=== PATIENT | male | born 1970 | race Caucasian/White ===

== ENCOUNTER 2023-10-27 23:03 | Emergency (ER) | payer SELFPAY ==
[2023-10-27] MEDS ORDERED: NA CHLORIDE 0.9% 1,000 ML ONE (23:21)
[2023-10-27 23:36] LABS: Absolute Eosinophils 0.1 K/uL (0-0.5); Absolute Lymphocytes (CBC) 0.9 K/uL (0.7-4.9); Absolute Monocytes 0.7 K/uL (0.1-1.3); Absolute Neutrophil 7.6 K/uL (1.8-8.0); Basophils % 0.5 % (0-1.3); Eosinophils % 0.7 % (0-4.4); Hematocrit 38.2 % (39.6-49.0); Hemoglobin 13.1 g/dL (13.6-17.9); Lymphocytes % 9.7 % (15.3-44.8); MCH 32.6 pg (27.0-35.0); MCHC 34.4 g/dL (32.0-36.0); MCV 94.9 fL (80-100); MPV 8.3 fL (7.6-11.3); Monocytes % 7.9 % (3.3-12.3); Neutrophils % 81.2 % (41.7-73.7); Nucleated Red Blood Cells % 0.1 % (0-0); Platelets 282 thou/uL (152-406); RBC Red Blood Cell Count 4.03 M/uL (4.33-5.43); Red Cell Distribution Width 14.2 % (12.1-15.2)
[2023-10-27 23:55] LABS: ALT/SGPT 50 U/L (16-61); AST/SGOT 41 U/L (15-37); Albumin 3.8 g/dL (3.4-5.0); Albumin/Globulin Ratio 1.1 (1.1-1.8); Alkaline Phosphatase 85 U/L (45-117); Anion Gap 8.9 mEq/L (5.0-15.0); BUN Blood Urea Nitrogen 26 mg/dL (7-18); Bicarbonate 28 mEq/L (21-32); Bilirubin Total 0.2 mg/dL (0.2-1.0); Globulin 3.6 g/dL (2.3-3.5); Glomerular Filtration Rate 58 ml/min (=/>90); Glucose Level 104 mg/dL (74-106); Magnesium 2.2 mg/dL (1.6-2.4); Potassium 3.9 mEq/L (3.5-5.1); Protein, Total 7.4 g/dL (6.4-8.2); Sodium Level 141 mEq/L (136-145); Troponin High Sensitivity 13.5 pg/mL (<58.9)
[2023-10-28 00:10] LABS: Bilirubin Direct < 0.2 mg/dL (0-0.2)
--- NOTE | 2023-10-28 01:47 | EDPHYS ---
Physician Documentation [facility] Name: Genaro Antonio Jr Age: 53 yrs Sex: Male : 1970 Arrival Date: 10/27/2023 Time: 23:03 Bed 7 Private MD: ED Physician Van Lynne HPI: 10/27 00:01 This 53 yrs old Male presents to ER via EMS with complaints of chest pain, hernia pain. rt 00:01 Patient presents to the ED with intermittent chest pain during the morning times that rt resolved soon after waking up. Patient states that he gone to argument with family ember, causing him to have chest pain again. This is also since resolved. Patient reports a right inguinal hernia that has been present for about a year. States it is easily reducible but then does come out quite frequently. Does not follow-up with a surgeon for this. Denies other acute complaints at this time. States he has been feeling jittery, has been off of his thyroid medications for about a month. Symptoms are moderate in severity, no other aggravating elevating factors.. Historical: - Allergies: 10/26 23:14 No Known Allergies; jb4 - PMHx: 23:14 inguanal hernia; thyroid cancer; jb4 - PSHx: 23:14 thyroid ectomy; cranial surgery; jb4 - Immunization history:: Adult Immunizations up to date. - Infectious Disease History:: Denies. - Social history:: Smoking status: Patient reports the use of cigarette tobacco products, smokes one-half pack cigarettes per day. - Family history:: not pertinent. ROS: 10/27 00:01 Constitutional: Negative for fever, chills, and weight loss, Respiratory: Negative for rt shortness of breath, cough, wheezing, and pleuritic chest pain, MS/Extremity: Negative for injury and deformity, Skin: Negative for injury, rash, and discoloration, Neuro: Negative for headache, weakness, numbness, tingling, and seizure, Cardiovascular: Positive for chest pain, Negative for edema, Abdomen/GI: Positive for abdominal pain, Negative for nausea and vomiting, Exam: 00:01 Constitutional: This is a well developed, well nourished patient who is awake, alert, rt and in no acute distress. Head/Face: Normocephalic, atraumatic. Chest/axilla: Normal chest wall appearance and motion. Nontender with no deformity. No lesions are appreciated. Cardiovascular: Regular rate and rhythm with a normal S1 and S2. No gallops, murmurs, or rubs. Normal PMI, no JVD. No pulse deficits. Respiratory: Lungs have equal breath sounds bilaterally, clear to auscultation and percussion. No rales, rhonchi or wheezes noted. No increased work of breathing, no retractions or nasal flaring. Skin: Warm, dry with normal turgor. Normal color with no rashes, no lesions, and no evidence of cellulitis. MS/ Extremity: Pulses equal, no cyanosis. Neurovascular intact. Full, normal range of motion. Neuro: Awake and alert, GCS 15, oriented to person, place, time, and situation. Cranial nerves II-XII grossly intact. Motor strength 5/5 in all extremities. Sensory grossly intact. Cerebellar exam normal. Normal gait. 00:01 Abdomen/GI: Easily reducible right inguinal hernia, no abdominal tenderness, distention, 00:03 ECG was reviewed by the Attending Physician. rt Vital Signs: 10/26 23:08 BP 161 / 109; Pulse 80; Resp 16; Temp 98.5; Pulse Ox 92% on R/A; Weight 104.33 kg (R); jb4 Height 6 ft. 1 in. (R); Pain 10/10; 10/27 00:12 BP 148 / 99; Pulse 75; Resp 21; Pulse Ox 95% on R/A; vc1 01:01 BP 148 / 97; Pulse 72; Resp 19; Pulse Ox 98% on R/A; jb4 01:17 BP 148 / 97; Pulse 69; Resp 13; Pulse Ox 94% on R/A; vc1 02:01 BP 148 / 97; Pulse 69; Resp 13; Pulse Ox 94% ; vc1 10/26 23:08 Body Mass Index 30.34 (104.33 kg, 185.42 cm) jb4 10/26 23:08 Pain Scale: Adult jb4 MDM: 10/26 23:06 Patient medically screened. rt 10/27 04:21 Differential Diagnosis Hernia, bowel obstruction, ACS, nonspecific chest pain. Data rt reviewed: vital signs, nurses notes, lab test result(s), EKG, radiologic studies. Consideration of Admission/Observation Escalation of care including admission/observation considered. Symptoms not consistent with acute coronary syndrome, low troponin, unremarkable EKG, patient has easily reducible hernia, not requiring emergent surgery. Patient to follow-up as an outpatient.. I considered the following discharge prescriptions or medication management in the emergency department Medications were administered in the Emergency Department. See MAR. Independent interpretation of the following test(s) in the Emergency Department CT Scan: My interpretation is Inguinal hernia seen on interpretation of CT scan images. Test considered but Not performed: CT: Low suspicion for pulmonary embolus, CT angiogram not indicated. Counseling: I had a detailed discussion with the patient and/or guardian regarding the historical points, exam findings, and any diagnostic results supporting the discharge/admit diagnosis, lab results, radiology results, the need for outpatient follow up, to return to the emergency department if symptoms worsen or persist or if there are any questions or concerns that arise at home. Response to treatment: the patient's symptoms have markedly improved after treatment. 10/26 23:16 Order name: Basic Metabolic Panel; Complete Time: 00:23 rt 10/26 23:16 Order name: CBC with Diff; Complete Time: 00: rt 10/26 23:16 Order name: LFT's; Complete Time: 00:23 rt 10/26 23:16 Order name: Magnesium; Complete Time: 00:23 rt 10/26 23:16 Order name: Troponin HS; Complete Time: 00:23 rt 10/26 23:16 Order name: TSH; Complete Time: 00:23 rt 10/27 00:12 Order name: T4 Free; Complete Time: 00:23 EDMS 10/26 23:16 Order name: XRAY Chest (1 view) rt 10/26 23:16 Order name: CT Abd/Pelvis - IV Contrast Only rt 10/26 23:16 Order name: EKG; Complete Time: 23:17 rt 10/26 23:16 Order name: Cardiac monitoring; Complete Time: 23:18 rt 10/26 23:16 Order name: EKG - Nurse/Tech; Complete Time: 23:18 rt 10/26 23:16 Order name: IV Saline Lock; Complete Time: 23:18 rt 10/26 23:16 Order name: Labs collected and sent; Complete Time: 23:18 rt 10/26 23:16 Order name: O2 Per Protocol; Complete Time: 23:18 rt 10/26 23:16 Order name: O2 Sat Monitoring; Complete Time: 23:18 rt EC:03 Rate is 80 beats/min. Rhythm is regular, Normal Sinus Rhythm with No ectopy. QRS [place] rt is Normal. [place] interval is normal. QRS interval is normal. QT interval is normal. No Q waves. No ST changes noted. Interpreted by me. Administered Medications: 10/26 23:27 Drug: NS 0.9% IV 1000 ml IV at 1 bolus Per protocol; 1000 mL bolus Route: IV; Rate: 1 jb4 bolus; Site: right antecubital; 10/27 00:27 Follow up: IV Status: Completed infusion vc1 Disposition Summary: 10/28/23 01:47 Discharge Ordered Notes: Location: Home rt Problem: new rt Symptoms: have improved rt Condition: Stable rt Diagnosis - Chest pain, unspecified rt - Hypothyroidism, unspecified rt Followup: rt - With: Private Physician - When: 2 - 3 days - Reason: Discharge Instructions: - Discharge Summary Sheet rt - Nonspecific Chest Pain, Adult rt - Hypothyroidism rt Forms: - Medication Reconciliation Form rt - Antibiotic Education rt - Prescription Opioid Use rt - Patient Portal Instructions rt - Leadership Thank You Letter rt Prescriptions: - Levothyroxine 150 mcg Oral tablet - take 2 tablet ORAL route once daily; 60 tablet; Refills: 0, Product Selection rt Permitted Signatures: Dispatcher [employer] Candelario Logan RN RN jb4 Van Lynne MD MD rt Mini Cardoza RN vc1 Corrections: (The following items were deleted from the chart) 10/26 23:17 23:17 BASIC METABOLIC PANEL+C.LAB.BRZ ordered. EDMS EDMS 23:17 23:17 CBC+H.LAB.BRZ ordered. EDMS EDMS 23:17 23:17 HEPATIC FUNCTION+C.LAB.BRZ ordered. EDMS EDMS 23:17 23:17 MAGNESIUM+C.LAB.BRZ ordered. EDMS EDMS 23:17 23:17 Troponin High Sensitivity+C.LAB.BRZ ordered. EDMS EDMS 23:17 23:17 THYROID STIMULAT HORMONE+C.LAB.BRZ ordered. EDMS EDMS
--- NOTE | 2023-10-28 01:47 | ER ---
Nurse's Notes [facility] Name: Genaro Antonio Jr Age: 53 yrs Sex: Male : 1970 Arrival Date: 10/27/2023 Time: 23:03 Bed 7 Private MD: Diagnosis: Chest pain, unspecified;Hypothyroidism, unspecified Presentation: 10/26 23:08 Chief complaint: Patient states: I am not currently having chest pain but I have an jb4 inguinal hernia that is really bothers me. I can put it back in but it keeps popping back out. EMS states: Pt states he got into an argument and his chest pain is worse tonight than it has been the past week. He reports dizziness and feeling jittery for the past week. Coronavirus screen: At this time, the client does not indicate any symptoms associated with coronavirus-19. Ebola Screen: No symptoms or risks identified at this time. Initial Sepsis Screen: Does the patient meet any 2 criteria? No. Patient's initial sepsis screen is negative. Does the patient have a suspected source of infection? No. Patient's initial sepsis screen is negative. Risk Assessment: Do you want to hurt yourself or someone else? Patient reports no desire to harm self or others. Onset of symptoms was October 27, 2023. Transition of care: patient was not received from another setting of care. 23:08 Method Of Arrival: EMS: [facility] jb4 23:08 Acuity: MARTHA 3 jb4 Historical: - Allergies: 23:14 No Known Allergies; jb4 - PMHx: 23:14 inguanal hernia; thyroid cancer; jb4 - PSHx: 23:14 thyroid ectomy; cranial surgery; jb4 - Immunization history:: Adult Immunizations up to date. - Infectious Disease History:: Denies. - Social history:: Smoking status: Patient reports the use of cigarette tobacco products, smokes one-half pack cigarettes per day. - Family history:: not pertinent. Screenin:15 [facility] ED Fall Risk Assessment (Adult) History of falling in the last 3 months, jb4 including since admission No falls in past 3 months (0 pts) Confusion or Disorientation No (0 pts) Intoxicated or Sedated No (0 pts) Impaired Gait No (0 pts) Mobility Assist Device Used No (0 pt) Altered Elimination No (0 pt) Score/Fall Risk Level 0 - 2 = Low Risk Oriented to surroundings, Maintained a safe environment. Abuse screen: Denies threats or abuse. Nutritional screening: No deficits noted. Tuberculosis screening: No symptoms or risk factors identified. Assessment: 23:15 General: Appears in no apparent distress. uncomfortable, Behavior is calm, cooperative, jb4 appropriate for age. Pain: Complains of pain in groin Pain does not radiate. Pain currently is 10 out of 10 on a pain scale. Neuro: Level of Consciousness is awake, alert, obeys commands, Oriented to person, place, time, situation. Cardiovascular: Patient's skin is warm and dry. Respiratory: Airway is patent Respiratory effort is even, unlabored, Respiratory pattern is regular, symmetrical. GI: No signs and/or symptoms were reported involving the gastrointestinal system. : No signs and/or symptoms were reported regarding the genitourinary system. EENT: No signs and/or symptoms were reported regarding the EENT system. Derm: Skin is intact, Skin is pink, warm \T\ dry. Musculoskeletal: Circulation, motion, and sensation intact. Range of motion: intact in all extremities. 10/27 01:17 Reassessment: Patient appears in no apparent distress at this time. No changes from vc1 previously documented assessment. Patient and/or family updated on plan of care and expected duration. Pain level reassessed. Patient is alert, oriented x 3, equal unlabored respirations, skin warm/dry/pink. Patient denies pain at this time. 02:01 Reassessment: Patient appears in no apparent distress at this time. No changes from vc1 previously documented assessment. Patient and/or family updated on plan of care and expected duration. Pain level reassessed. Patient is alert, oriented x 3, equal unlabored respirations, skin warm/dry/pink. Vital Signs: 10/26 23:08 BP 161 / 109; Pulse 80; Resp 16; Temp 98.5; Pulse Ox 92% on R/A; Weight 104.33 kg (R); jb4 Height 6 ft. 1 in. (R); Pain /; 10/27 00:12 BP 148 / 99; Pulse 75; Resp 21; Pulse Ox 95% on R/A; vc1 01:01 BP 148 / 97; Pulse 72; Resp 19; Pulse Ox 98% on R/A; jb4 01:17 BP 148 / 97; Pulse 69; Resp 13; Pulse Ox 94% on R/A; vc1 02:01 BP 148 / 97; Pulse 69; Resp 13; Pulse Ox 94% ; vc1 10/26 23:08 Body Mass Index 30.34 (104.33 kg, 185.42 cm) jb4 10/26 23:08 Pain Scale: Adult jb4 ED Course: 10/26 23:05 Patient arrived in ED. ss 23:06 Van Lynne MD is Attending Physician. rt 23:08 Inserted saline lock: 20 gauge in right antecubital area, using aseptic technique. vc1 Blood collected. Flushed with 10 mL NS. 23:14 Triage completed. jb4 23:14 Arm band placed on right wrist. jb4 10/27 00:34 CT Abd/Pelvis - IV Contrast Only In Process Unspecified. EDMS 00:59 Patient has correct armband on for positive identification. Bed in low position. Call jb4 light in reach. Side rails up X 1. Provided Education on: plan of care. 01:17 XRAY Chest (1 view) In Process Unspecified. EDMS 02:03 No provider procedures requiring assistance completed. IV discontinued, intact, vc1 bleeding controlled, No redness/swelling at site. Pressure dressing applied. Administered Medications: 10/26 23:27 Drug: NS 0.9% IV 1000 ml IV at 1 bolus Per protocol; 1000 mL bolus Route: IV; Rate: 1 jb4 bolus; Site: right antecubital; 10/27 00:27 Follow up: IV Status: Completed infusion vc1 Medication: 10/26 23:15 VIS not applicable for this client. jb4 Outcome: 10/27 01:47 Discharge ordered by . rt 02:03 Discharged to home ambulatory, vc1 02:03 Condition: good 02:03 Discharge instructions given to patient, Instructed on discharge instructions, follow up and referral plans. medication usage, Demonstrated understanding of instructions, follow-up care, medications, Prescriptions given X 1, 02:11 Patient left the ED. ss Signatures: Dispatcher [employer] EDMS Maya Garduno RN RN Candelario Carver RN RN jb4 Mini Cardoza RN RN vc1 Van Lynne MD MD rt
[2023-10-28 02:35] VITALS: TEMP 98.5
[2023-10-28 02:38] VITALS: BP 148/97
[2023-10-28 02:39] VITALS: O2SAT 94
--- NOTE | 2023-10-28 17:45 | EKG ---
Test Date: 2023-10-27 Test Time: 23:04:42 Accreditation Coordinator: KINGA MEASUREMENT RESULTS: Intervals: Rate: 80 CT: 186 QRSD: 88 QT: 350 QTc: 403 [place]: P: 60 CT: 186 QRS: 15 T: 61 INTERPRETIVE STATEMENTS: Normal sinus rhythm Septal infarct, age undetermined Abnormal ECG No previous ECG available for comparison Electronically Signed On 10-28-23 17:44:13 CDT by Tristian Burton
--- NOTE | 2023-10-28 20:25 | RAD REPORT ---
EXAM DESCRIPTION: Abdomen Pelvis W Contrast 10/28/2023 1:01 AM CDT CLINICAL HISTORY: 53 years, Male, hernia;Abd pain COMPARISON: None TECHNIQUE: Contrast-enhanced images of the abdomen and pelvis were performed from the lung bases to the ischial tuberosities after the administration of IV contrast. In addition multiplanar reformats in the coronal and sagittal plane were obtained and reviewed. An individualized dose optimization technique, Automated Exposure Control, was utilized for the perfo rmed procedure. FINDINGS: Lung bases: The lung bases minimal atelectasis right lung base. Liver: The liver demonstrates to be normal. There are several subcentimeter hepatic cysts right and l eft hepatic lobe largest one measuring 0.9 cm on image 8. Gallbladder: The gallbladder is partially contracted most likely related to lack of fasting. No signi ficant filling defects and/or abnormality is identified. Adrenal glands: The adrenal glands demonstrate to be normal. Pancreas: The pancreas demonstrate to be normal. Spleen: The spleen demonstrate to be within normal limits. Kidneys: The kidneys demonstrate normal uptake of contrast media. There is no evidence for nephroli thiasis and/or hydronephrosis. GI: Grossly the unopacified stomach, small bowel and large bowel demonstrate to be within normal limi ts. No definitive bowel dilatation and/or free air. The appendix is normal. The left-sided colon demo nstrate to be decompressed with no gross abnormalities. : The urinary bladder demonstrate to be unremarkable. Genitalia: The prostate gland demonstrate to be slightly perhaps related to BPH. Abdominal aorta: The aorta demonstrate to be within normal limits. Retroperitoneum: There is no retroperitoneal lymphadenopathy. There is no evidence for ascites and/or abnormal fluid collections. Bones: The bony structures demonstrate to be within normal limits. Lumbar spine demonstrated presence of a minimal degenerative changes with anterior spondylosis at L4/L5. No evidence for compression de formity and/or significant skeletal lesions. Soft tissues: There is a right inguinal hernia containing omentum and small bowel extending down to t he scrotal sac. There is minimal haziness of the peritoneum at the site of entry of hernia suggesting fluid and/or minimal irritation. IMPRESSION: Right inguinal hernia containing omentum and small bowel extending down to the scrotal s ac. There is minimal haziness of the peritoneum at the site of entry of hernia suggesting fluid and/o r minimal irritation. No evidence for incarceration. Several subcentimeter hepatic cysts. Mildly enlarged prostate gland perhaps related to BPH. Electronically signed by: Rodger Acharya MD 10/28/2023 01:04 AM CDT RP Due to temporary technical issues with the PACS/Fluency reporting system, reports are being signed by the in house radiologists without review as a courtesy to insure prompt reporting. The interpreting radiologist is fully responsible for the content of the report.
--- NOTE | 2023-10-28 20:32 | RAD REPORT ---
EXAM DESCRIPTION: XR Chest, 1 View CLINICAL HISTORY: The patient is 53 years old and is Male; CHEST PAIN TECHNIQUE: Frontal view of the chest. COMPARISON: No relevant prior studies available. FINDINGS: Lungs: Peribronchial thickening. No consolidation. Pleural space: Unremarkable. No pneumothorax. Heart: Unremarkable. Mediastinum: Unremarkable. Normal mediastinal contour. Bones/joints: No acute findings. IMPRESSION: Peribronchial thickening. No consolidation. Electronically signed by: Harjindre Barnett MD 10/28/2023 01:27 AM CDT 8 Due to temporary technical issues with the PACS/Fluency reporting system, reports are being signed by the in house radiologists without review as a courtesy to insure prompt reporting. The interpreting radiologist is fully responsible for the content of the report.
== END 2023-10-28 02:11 | disposition home or self-care (01) ==
LOC: ER 23:03
DX: R07.9 Chest pain, unspecified (principal); E03.9 Hypothyroidism, unspecified; K40.90 Unilateral inguinal hernia, without obstruction or gangrene, not specified as recurrent; F17.210 Nicotine dependence, cigarettes, uncomplicated
CPT/HCPCS: 36415; 71045; 74177; 80048; 80076; 83735; 84439; 84443; 84484; 85025; 93005; J7030; Q9967

== ENCOUNTER 2023-10-31 14:09 | Emergency (ER) | payer OTHER ==
[2023-10-31] MEDS ORDERED: NA CHLORIDE 0.9% 500 ML ONE (15:01)
[2023-10-31] MEDS ORDERED: MAGNESIUM SULFATE 1 gm IVPB 1 GM/100 ML BAG IV ONE (15:02)
--- NOTE | 2023-10-31 15:02 | RAD REPORT ---
EXAM DESCRIPTION: CT - Head Brain Wo Cont - 10/31/2023 2:56 pm CLINICAL HISTORY: Headache;Visual disturbances Headache, drowsiness COMPARISON: <Comparisons> TECHNIQUE: All CT scans are performed using dose optimization technique as appropriate and may inclu de automated exposure control or mA/KV adjustment according to patient size. FINDINGS: No intracranial hemorrhage, hydrocephalus or extra-axial fluid collection.No areas of brai n edema or evidence of midline shift. Gliosis with previous craniotomy left frontal region. The paranasal sinuses and mastoids are clear. Mild vertebral atherosclerosis. IMPRESSION: No acute intracranial abnormality.
[2023-10-31 15:10] LABS: Absolute Basophils 0.1 K/uL (0-0.5); Absolute Eosinophils 0.1 K/uL (0-0.5); Absolute Lymphocytes (CBC) 1.2 K/uL (0.7-4.9); Absolute Neutrophil 8.4 K/uL (1.8-8.0); Basophils % 0.7 % (0-1.3); Eosinophils % 0.5 % (0-4.4); Hematocrit 45.2 % (39.6-49.0); Hemoglobin 15.1 g/dL (13.6-17.9); Lymphocytes % 11.1 % (15.3-44.8); MCH 32.1 pg (27.0-35.0); MCHC 33.4 g/dL (32.0-36.0); MCV 95.9 fL (80-100); MPV 8.6 fL (7.6-11.3); Neutrophils % 78.7 % (41.7-73.7); Platelets 344 thou/uL (152-406); RBC Red Blood Cell Count 4.71 M/uL (4.33-5.43); Red Cell Distribution Width 14.2 % (12.1-15.2)
[2023-10-31 15:58] LABS: Albumin 4.7 g/dL (3.4-5.0); Albumin/Globulin Ratio 1.1 (1.1-1.8); Anion Gap 9.6 mEq/L (5.0-15.0); Bilirubin Total 0.5 mg/dL (0.2-1.0); Globulin 4.2 g/dL (2.3-3.5); Potassium 4.6 mEq/L (3.5-5.1); Protein, Total 8.9 g/dL (6.4-8.2)
[2023-10-31] MEDS ORDERED: NA CHLORIDE 0.9% 1,000 ML ONE ×2 (16:02→17:25)
[2023-10-31 17:19] LABS: Specific Gravity > 1.030 (1.005-1.030); Sqamous Epithelial <5 /HPF (None Seen); Urine Bacteria <20 /HPF (<20); Urine Bilirubin NEGATIVE (Negative); Urine Blood Negative (Negative); Urine Clarity Extremely Turbid (Clear); Urine Color Yellow (Yellow); Urine Culture Reflex Order NOT NEEDED; Urine Glucose NEGATIVE (Negative); Urine Ketones NEGATIVE (Negative); Urine Microscopic Reflex YN ORDER UMIC; Urine Mucus 4+ /HPF (None Seen); Urine Nitrite NEGATIVE (Negative); Urine Protein 1+ (Negative); Urine RBC <5 /HPF (None Seen); Urine Urobilinogen 1+ (Normal); Urine WBC <5 /HPF (<5); Urine pH 5.5 (5.0-7.0)
[2023-10-31 17:20] LABS: Urine Crystals Unidentified Few /HPF (None Seen); Urine WBC Clump Rare /HPF (None Seen); Urine Yeast (Budding) Trace /HPF (None Seen)
--- NOTE | 2023-10-31 17:56 | ER ---
Nurse's Notes [facility] Name: Genaro Antonio Jr Age: 53 yrs Sex: Male : 1970 Arrival Date: 10/31/2023 Time: 14:09 Bed 15 Private MD: Diagnosis: Rhabdomyolysis;Dehydration Presentation: 10/30 14:20 Chief complaint: EMS states: Working outside past three days and is now experiencing rs5 generalized cramping. 14:20 Coronavirus screen: At this time, the client does not indicate any symptoms associated rs5 with coronavirus-19. Ebola Screen: No symptoms or risks identified at this time. Initial Sepsis Screen: Does the patient meet any 2 criteria? No. Patient's initial sepsis screen is negative. Does the patient have a suspected source of infection? No. Patient's initial sepsis screen is negative. Risk Assessment: Do you want to hurt yourself or someone else? Patient reports no desire to harm self or others. Onset of symptoms was October 31, 2023. 14:20 Method Of Arrival: EMS: [facility] rs 14:20 Acuity: MARTHA 3 rs5 Historical: - Allergies: 14:27 No Known Allergies; rs5 - PMHx: 14:27 THYROID CANCER; inguanal hernia; Aneurysm; Kidney disease; rs5 - PSHx: 14:27 Cranial surgery; thyroid ectomy; rs5 - Immunization history:: Adult Immunizations up to date. - Infectious Disease History:: Denies. - Social history:: Smoking status: Patient denies any tobacco usage or history of. Screenin:20 [facility] ED Fall Risk Assessment (Adult) History of falling in the last 3 months, rs5 including since admission No falls in past 3 months (0 pts) Confusion or Disorientation No (0 pts) Intoxicated or Sedated No (0 pts) Impaired Gait No (0 pts) Mobility Assist Device Used No (0 pt) Altered Elimination No (0 pt) Score/Fall Risk Level 0 - 2 = Low Risk Oriented to surroundings, Maintained a safe environment. Abuse screen: Denies threats or abuse. Nutritional screening: No deficits noted. Tuberculosis screening: No symptoms or risk factors identified. Assessment: 14:20 General: Appears in no apparent distress. uncomfortable, Behavior is calm, cooperative. rs5 Pain: Denies pain. Neuro: Level of Consciousness is awake, alert, obeys commands, Oriented to person, place, time, situation. Cardiovascular: Patient's skin is warm and dry. Respiratory: Airway is patent Respiratory effort is even, unlabored, Respiratory pattern is regular, symmetrical. GI: Abdomen is round non-distended, Abd is soft and non tender X 4 quads. : No signs and/or symptoms were reported regarding the genitourinary system. EENT: No signs and/or symptoms were reported regarding the EENT system. Derm: Skin is intact, Skin is pink, warm \T\ dry. Musculoskeletal: Range of motion: intact in all extremities, pt reports generalized cramping. 15:33 Reassessment: Patient and/or family updated on plan of care and expected duration. Pain rs5 level reassessed. Patient is alert, oriented x 3, equal unlabored respirations, skin warm/dry/pink. 16:40 Reassessment: No changes from previously documented assessment. rs5 18:03 Reassessment: No changes from previously documented assessment. rs5 Vital Signs: 14:20 BP 148 / 89; Pulse 70; Resp 17; Temp 97.9(O); Pulse Ox 98% on R/A; rs5 17:01 BP 135 / 80; Pulse 74; Resp 17; Pulse Ox 98% on R/A; rs5 18:05 BP 133 / 79; Pulse 70; Resp 16; Pulse Ox 99% on R/A; rs5 ED Course: 14:17 Patient arrived in ED. rn 14:17 Bello Paula MD is Attending Physician. rn 14:20 Patient has correct armband on for positive identification. Placed in gown. Bed in low rs5 position. Call light in reach. Side rails up X2. 14:20 Arm band placed on right wrist. bm8 14:20 No provider procedures requiring assistance completed. rs5 14:25 Jose Leblanc, ARMIN is Primary Nurse. rs5 14:27 Triage completed. rs5 14:57 CT Head Brain wo Cont In Process Unspecified. EDMS 18:05 Inserted saline lock: 20 gauge in right antecubital area, using aseptic technique. rs5 Blood collected. Flushed with 10 mL NS. 18:05 IV discontinued, intact, bleeding controlled, No redness/swelling at site. Pressure rs5 dressing applied. 18:09 Attending Physician role handed off by Bello Paula MD rs5 18:09 Primary Nurse role handed off by Jose Leblanc RN rs5 18:09 Jose Leblanc, RN is Primary Nurse. rs5 18:40 Provided Education on: post er care. bm8 18:41 Bello Paula MD is Attending Physician. bm8 Administered Medications: 15:12 Drug: NS 0.9% IV 500 ml IV at bolus once Route: IV; Rate: bolus; Site: right rs5 antecubital; 16:00 Follow up: IV Status: Completed infusion rs5 15:12 Drug: Magnesium Sulfate IVPB 1 grams IVPB once over 1 hrs Route: IVPB; Infused Over: 1 rs5 hrs; Site: right antecubital; 16:00 Follow up: IV Status: Completed infusion rs5 16:05 Drug: NS 0.9% IV 1000 ml IV at 1000 ml once Route: IV; Rate: 1000 ml; Site: right rs5 antecubital; 17:00 Follow up: IV Status: Completed infusion rs5 17:46 Drug: NS 0.9% IV 1000 ml IV at 1000 ml once Route: IV; Rate: 1000 ml; Site: right rs5 antecubital; 18:06 Follow up: IV Status: Completed infusion rs5 Medication: 18:05 VIS not applicable for this client. rs5 Outcome: 17:55 Discharge ordered by . rn 18:05 Discharged to home ambulatory, rs5 18:05 Condition: stable 18:05 Discharge instructions given to patient, family, Instructed on discharge instructions, follow up and referral plans. Demonstrated understanding of instructions, follow-up care, 18:06 Patient left the ED. rs5 18:41 Patient left the ED. bm8 Signatures: Dispatcher [employer] EDMS Bello Paula MD MD rn Sotelo, Ricky, RN RN rs5 Elliot Oneill RN RN bm8
--- NOTE | 2023-10-31 17:56 | EDPHYS ---
Physician Documentation [facility] Name: Genaro Antonio Jr Age: 53 yrs Sex: Male : 1970 Arrival Date: 10/31/2023 Time: 14:09 Bed 15 Private MD: ED Physician Bello Paula HPI: 10/30 14:36 This 53 yrs old Male presents to ER via EMS with complaints of rn Cramping-Generalized. 14:36 53-year-old male with past medical history of stage III chronic kidney disease, rn cerebral aneurysm, thyroid cancer status post thyroidectomy, inguinal hernia presents to the emergency department via EMS with complaints of whole body cramping. EMS reports the patient has been working outside the past 3 days and today developed full body cramping, nausea, blurry vision which prompted him to call EMS. The patient states he experienced the symptoms to a lesser degree yesterday and has been increasing his fluid intake due to feeling dehydrated, however he states that his symptoms became much worse today. He describes full body cramping rated as 10 out of 10 pain, global headache, and blurry changes to his vision. He also states that he was out of his levothyroxine for 2 weeks and recently restarted the medication 3 days ago. Patient reports being seen in this ED recently for chest pain but had a negative EKG and cardiac workup and was discharged home. He currently denies any chest pain or other symptoms he had been experiencing at that time. Patient also denies fever, chills, shortness of breath, syncope, numbness, tingling.. Historical: - Allergies: 14:27 No Known Allergies; rs5 - PMHx: 14:27 THYROID CANCER; inguanal hernia; Aneurysm; Kidney disease; rs5 - PSHx: 14:27 Cranial surgery; thyroid ectomy; rs5 - Immunization history:: Adult Immunizations up to date. - Infectious Disease History:: Denies. - Social history:: Smoking status: Patient denies any tobacco usage or history of. ROS: 14:45 Constitutional: Negative for fever, chills, and weight loss, ENT: Negative for injury, rn pain, and discharge, Cardiovascular: Negative for chest pain, palpitations, and edema, Respiratory: Negative for shortness of breath, cough, wheezing, and pleuritic chest pain, Back: Negative for injury and pain, MS/Extremity: Negative for injury and deformity, 14:45 Eyes: Positive for blurry vision, Negative for pain, photophobia, tearing, 14:45 Abdomen/GI: Positive for nausea, abdominal cramps, Negative for vomiting, diarrhea, constipation, dysphagia, black/tarry stool, rectal bleeding, 14:45 : Positive for Pain and bulging sensation secondary to pre-existing inguinal hernia, Negative for hematuria, flank pain, difficulty urinating, 14:45 MS/extremity: Positive for Diffuse muscular cramping, Negative for injury or acute deformity, erythema, paresthesias, swelling, tenderness, tingling, 14:45 Neuro: Positive for headache, visual changes, Negative for gait disturbance, numbness, seizure activity, syncope, tingling, weakness, 14:45 All other systems are negative, Exam: 14:52 Constitutional: This is a well developed, well nourished patient who is awake and rn alert but appears uncomfortable, changing positions from lying in bed to standing frequently secondary to muscular cramping. Head/Face: Normocephalic, atraumatic. Cardiovascular: Regular rate and rhythm with a normal S1 and S2. No pulse deficits. Respiratory: Lungs have equal breath sounds bilaterally, clear to auscultation and percussion. No rales, rhonchi or wheezes noted. No increased work of breathing, no retractions or nasal flaring. Abdomen/GI: Soft, non-tender, with normal bowel sounds. No distension or tympany. No guarding or rebound. No evidence of tenderness throughout. Back: No spinal tenderness. No costovertebral tenderness. Full range of motion. 14:52 Neck: 14:52 Musculoskeletal/extremity: Visible diffuse muscle spasming of upper and lower extremities. Strength and range of motion examination limited secondary to muscular spasms. Sensation intact throughout. . 14:52 Skin: Exam negative for pallor, petechiae, rash, Appearance: Color: pink, Temperature: warm, Moisture: dry, flushing, that are mild, 14:52 Neuro: Exam negative for focal neuro deficits, sensory deficits, weakness, Orientation: is normal, to person, place, time \T\ situation. Vital Signs: 14:20 BP 148 / 89; Pulse 70; Resp 17; Temp 97.9(O); Pulse Ox 98% on R/A; rs5 17:01 BP 135 / 80; Pulse 74; Resp 17; Pulse Ox 98% on R/A; rs5 18:05 BP 133 / 79; Pulse 70; Resp 16; Pulse Ox 99% on R/A; rs5 MDM: 14:17 Patient medically screened. rn 17:52 Differential Diagnosis Rhabdomyolysis, dehydration, electrolyte disorder. Data rn reviewed: vital signs, nurses notes, lab test result(s), radiologic studies, CT scan, and as a result, I will discharge patient. Consideration of Admission/Observation Escalation of care including admission/observation considered. Counseling: I had a detailed discussion with the patient and/or guardian regarding the historical points, exam findings, and any diagnostic results supporting the discharge/admit diagnosis, lab results, radiology results, the need for outpatient follow up, to return to the emergency department if symptoms worsen or persist or if there are any questions or concerns that arise at home. Response to treatment: the patient's symptoms have markedly improved after treatment. ED course: Patient markedly improved, is eating sandwich, has urinated a few times here and urine is clear. Patient reports history of stage III kidney disease at baseline, creatinine has a slight bump compared to a few days ago, offered admission for observation and more hydration, patient decides to go home, does not want to be admitted and understands the risks of going home. Patient reports cramps are gone and feels much better, back to baseline.. 10/30 14:34 Order name: CBC with Diff; Complete Time: 15:14 rn 10/30 14:34 Order name: CMP; Complete Time: 16:57 rn 10/30 14:34 Order name: Urinalysis w/ reflexes; Complete Time: 17:20 rn 10/30 14:34 Order name: CK; Complete Time: 16:57 rn 10/30 14:34 Order name: CT Head Brain wo Cont; Complete Time: 15:06 rn 10/30 14:34 Order name: EKG; Complete Time: 14:35 rn 10/30 14:34 Order name: IV Start; Complete Time: 15:12 rn 10/30 14:34 Order name: Cardiac monitoring; Complete Time: 15:12 rn 10/30 14:34 Order name: O2 Sat Monitoring; Complete Time: 15:12 rn Administered Medications: 15:12 Drug: NS 0.9% IV 500 ml IV at bolus once Route: IV; Rate: bolus; Site: right rs5 antecubital; 16:00 Follow up: IV Status: Completed infusion rs5 15:12 Drug: Magnesium Sulfate IVPB 1 grams IVPB once over 1 hrs Route: IVPB; Infused Over: 1 rs5 hrs; Site: right antecubital; 16:00 Follow up: IV Status: Completed infusion rs5 16:05 Drug: NS 0.9% IV 1000 ml IV at 1000 ml once Route: IV; Rate: 1000 ml; Site: right rs5 antecubital; 17:00 Follow up: IV Status: Completed infusion rs5 17:46 Drug: NS 0.9% IV 1000 ml IV at 1000 ml once Route: IV; Rate: 1000 ml; Site: right rs5 antecubital; 18:06 Follow up: IV Status: Completed infusion rs5 Disposition Summary: 10/31/23 17:55 Discharge Ordered Notes: Location: Home rn Problem: new rn Symptoms: have improved rn Condition: Stable rn Diagnosis - Rhabdomyolysis rn - Dehydration rn Followup: rn - With: Private Physician - When: As needed - Reason: Recheck today's complaints, Re-evaluation by your physician Discharge Instructions: - Discharge Summary Sheet rn - Dehydration, Adult rn - Rhabdomyolysis rn Forms: - Medication Reconciliation Form rn - Antibiotic rn family - Prescription Opioid Use rn - Patient Portal Instructions rn - Leadership Thank You Letter rn Signatures: Dispatcher [employer] Bello Clark MD MD rn Sotelo, Ricky, RN RN rs5 Corrections: (The following items were deleted from the chart) 14:45 14:36 53-year-old male with past medical history of stage III chronic kidney disease, rn cerebral aneurysm, thyroid cancer status post thyroidectomy, inguinal hernia presents to the emergency department via EMS with complaints of whole body cramping. EMS reports the patient has been working outside the past 3 days and today developed full body cramping, nausea, blurry vision which prompted him to call EMS. The patient states. rn
[2023-10-31 18:11] VITALS: TEMP 97.9
[2023-10-31 18:13] VITALS: BP 133/79; O2SAT 99
== END 2023-10-31 18:41 | disposition home or self-care (01) ==
LOC: ER 14:09
DX: M62.82 Rhabdomyolysis (principal); E86.0 Dehydration; Z85.850 Personal history of malignant neoplasm of thyroid
CPT/HCPCS: 96365; 96361; 85025; 81001; 36415; 82550; 80053; 70450; 99284; J3475; J7040; J7030 ×2

== ENCOUNTER 2024-01-17 10:12 | Emergency (ER) | payer OTHER ==
[2024-01-17 11:14] LABS: Absolute Eosinophils 0.1 K/uL (0-0.5); Absolute Lymphocytes (CBC) 1.4 K/uL (0.7-4.9); Absolute Monocytes 0.5 K/uL (0.1-1.3); Absolute Neutrophil 4.2 K/uL (1.8-8.0); Basophils % 0.6 % (0-1.3); Eosinophils % 1.9 % (0-4.4); Hematocrit 44.3 % (39.6-49.0); Hemoglobin 14.8 g/dL (13.6-17.9); Lymphocytes % 22.1 % (15.3-44.8); MCHC 33.4 g/dL (32.0-36.0); MCV 95.7 fL (80-100); MPV 8.4 fL (7.6-11.3); Monocytes % 7.6 % (3.3-12.3); Neutrophils % 67.8 % (41.7-73.7); Platelets 265 thou/uL (152-406); RBC Red Blood Cell Count 4.62 M/uL (4.33-5.43); Red Cell Distribution Width 14.2 % (12.1-15.2)
[2024-01-17 11:58] LABS: ALT/SGPT 52 U/L (16-61); AST/SGOT 62 U/L (15-37); Alkaline Phosphatase 87 U/L (45-117); Anion Gap 7.3 mEq/L (5.0-15.0); BUN Blood Urea Nitrogen 18 mg/dL (7-18); Bicarbonate 30 mEq/L (21-32); Bilirubin Total 0.4 mg/dL (0.2-1.0); Globulin 3.9 g/dL (2.3-3.5); Glomerular Filtration Rate 49 ml/min (=/>90); Glucose Level 103 mg/dL (74-106); Potassium 4.3 mEq/L (3.5-5.1); Protein, Total 7.9 g/dL (6.4-8.2); Sodium Level 137 mEq/L (136-145); Troponin High Sensitivity 18.1 pg/mL (<58.9)
[2024-01-17 11:59] LABS: Bilirubin Direct < 0.2 mg/dL (0-0.2); Bilirubin Indirect, Calculated 0.2 mg/dL (0.2-0.8)
--- NOTE | 2024-01-17 12:08 | ER ---
Nurse's Notes [facility] Name: Genaro Antonio Jr Age: 53 yrs Sex: Male : 1970 Arrival Date: 01/17/2024 Time: 10:12 Bed 17 Private MD: Diagnosis: Hypothyroidism, unspecified Presentation: 01/16 10:34 Chief complaint: Patient states: he has been out of his Levothyroxine for x3 weeks as kc6 he is in the process of changing PCP's. pt states he feels like he is "swelling up" and requests of medication refill. Coronavirus screen: At this time, the client does not indicate any symptoms associated with coronavirus-19. Ebola Screen: No symptoms or risks identified at this time. Initial Sepsis Screen: Does the patient meet any 2 criteria? No. Patient's initial sepsis screen is negative. Does the patient have a suspected source of infection? No. Patient's initial sepsis screen is negative. Risk Assessment: Do you want to hurt yourself or someone else? Patient reports no desire to harm self or others. Onset of symptoms was January 17, 2024. 10:34 Method Of Arrival: Ambulatory [facility] 10:34 Acuity: MARTHA 3 6 Triage Assessment: 10:37 General: Appears in no apparent distress. comfortable, well groomed, well developed, 6 Behavior is calm, cooperative, appropriate for age, Reports fatigue for >3 days. Pain: Denies pain. EENT: No signs and/or symptoms were reported regarding the EENT system. Neuro: Level of Consciousness is awake, alert, obeys commands, Oriented to person, place, time, situation, Appropriate for age Reports weakness. Cardiovascular: Reports chest pain, fatigue, shortness of breath, Capillary refill < 3 seconds. Respiratory: Airway is patent Trachea midline Respiratory effort is even, unlabored, Respiratory pattern is regular, symmetrical. GI: No signs and/or symptoms were reported involving the gastrointestinal system. : No signs and/or symptoms were reported regarding the genitourinary system. Derm: No signs and/or symptoms reported regarding the dermatologic system. Skin is intact, is healthy with good turgor, Skin is pink, warm \\T\\ dry. Musculoskeletal: No signs and/or symptoms reported regarding the musculoskeletal system. Circulation, motion, and sensation intact. Capillary refill < 3 seconds, Range of motion: intact in all extremities. Historical: - Allergies: 10:37 No Known Allergies; [facility] - PMHx: 10:37 Aneurysm; inguanal hernia; kidney disease; THYROID CANCER; Hypothyroidism; 6 - PSHx: 10:37 Cranial surgery; thyroid ectomy; [facility] - Immunization history:: Adult Immunizations up to date. - Infectious Disease History:: Denies. - Social history:: Smoking status: Patient reports the use of cigarette tobacco products, smokes one-half pack cigarettes per day. - Family history:: not pertinent. Screenin:39 [facility] ED Fall Risk Assessment (Adult) History of falling in the last 3 months, [facility] including since admission No falls in past 3 months (0 pts) Confusion or Disorientation No (0 pts) Intoxicated or Sedated No (0 pts) Impaired Gait No (0 pts) Mobility Assist Device Used No (0 pt) Altered Elimination No (0 pt) Score/Fall Risk Level 0 - 2 = Low Risk Oriented to surroundings. Abuse screen: Denies threats or abuse. Denies injuries from another. Nutritional screening: No deficits noted. Tuberculosis screening: No symptoms or risk factors identified. Assessment: 10:38 Reassessment: please see triage. [facility] 11:38 Reassessment: Patient appears in no apparent distress at this time. No changes from [facility] previously documented assessment. Patient and/or family updated on plan of care and expected duration. Pain level reassessed. Patient is alert, oriented x 3, equal unlabored respirations, skin warm/dry/pink. 12:20 Reassessment: Patient appears in no apparent distress at this time. No changes from [facility] previously documented assessment. Patient and/or family updated on plan of care and expected duration. Pain level reassessed. Patient is alert, oriented x 3, equal unlabored respirations, skin warm/dry/pink. Vital Signs: 10:34 BP 118 / 83; Pulse 78; Resp 17 S; Temp 98.1(O); Pulse Ox 95% on R/A; Weight 104.33 kg [facility] (R); Height 6 ft. 1 in. (R); 12:20 BP 146 / 94; Pulse 70; Resp 15 S; Pulse Ox 100% on R/A; 6 10:34 Body Mass Index 30.35 (104.33 kg, 185.42 cm) kc6 ED Course: 10:14 Patient arrived in ED. ra3 10:17 Van Lynne MD is Attending Physician. rt 10:34 Fadumo Alexander RN is Primary Nurse. kc6 10:37 Triage completed. kc6 10:37 Arm band placed on. kc6 10:39 Patient has correct armband on for positive identification. Bed in low position. Call kc6 light in reach. Side rails up X 1. Adult w/ patient. Pulse ox on. NIBP on. Door closed. Noise minimized. Lights dimmed. Pillow given. 10:39 Patient maintains SpO2 saturation greater than 95% on room air. kc6 11:09 Inserted saline lock: 20 gauge in right antecubital area, using aseptic technique. kc6 Blood collected. Flushed with 10 mL NS. 12:20 No provider procedures requiring assistance completed. IV discontinued, intact, kc6 bleeding controlled, No redness/swelling at site. Pressure dressing applied. Administered Medications: No medications were administered Medication: 12:20 VIS not applicable for this client. kc6 Outcome: 12:07 Discharge ordered by . rt 12:20 Discharged to home ambulatory, with significant other, kc6 12:20 Condition: good 12:20 Discharge instructions given to patient, significant other, Instructed on discharge instructions, follow up and referral plans. medication usage, Demonstrated understanding of instructions, follow-up care, medications, Prescriptions given X 1, 12:21 Patient left the ED. kc6 Signatures: Fadumo Alexander RN RN kc6 Van Lynne MD MD rt Jessica Rivera ra3 Corrections: (The following items were deleted from the chart) 10:39 10:34 BP 143 / 119; Pulse 78bpm; Resp 17bpm; Spontaneous; Pulse Ox 95% RA; Temp 98.1F kc6 Oral; 104.33 kg Reported; Height 6 ft. 1 in. Reported; BMI: 30.3; kc6
--- NOTE | 2024-01-17 12:08 | EDPHYS ---
Physician Documentation [facility] Name: Genaro Antonio Jr Age: 53 yrs Sex: Male : 1970 Arrival Date: 01/17/2024 Time: 10:12 Bed 17 Private MD: ED Physician Van Lynne HPI: 01/16 13:28 This 53 yrs old Male presents to ER via Ambulatory with complaints of Medication rt Refill, Facial Swelling. 13:28 Patient states that he has been out of his levothyroxine for about 2 weeks. States that rt he feels fatigued, feels like he is swelling. Denies other acute complaints at this time, symptoms are moderate in severity, no other aggravating or alleviating factors.. Historical: - Allergies: 10:37 No Known Allergies; kc6 - PMHx: 10:37 Aneurysm; inguanal hernia; kidney disease; THYROID CANCER; Hypothyroidism; kc6 - PSHx: 10:37 Cranial surgery; thyroid ectomy; kc6 - Immunization history:: Adult Immunizations up to date. - Infectious Disease History:: Denies. - Social history:: Smoking status: Patient reports the use of cigarette tobacco products, smokes one-half pack cigarettes per day. - Family history:: not pertinent. ROS: 13:28 Cardiovascular: Negative for chest pain, palpitations, and edema, Respiratory: Negative rt for shortness of breath, cough, wheezing, and pleuritic chest pain, Abdomen/GI: Negative for abdominal pain, nausea, vomiting, diarrhea, and constipation, Skin: Negative for injury, rash, and discoloration, Neuro: Negative for headache, weakness, numbness, tingling, and seizure, 13:28 Constitutional: Positive for fatigue, Negative for fever, Exam: 13:28 Constitutional: This is a well developed, well nourished patient who is awake, alert, rt and in no acute distress. Head/Face: Normocephalic, atraumatic. Chest/axilla: Normal chest wall appearance and motion. Nontender with no deformity. No lesions are appreciated. Cardiovascular: Regular rate and rhythm with a normal S1 and S2. No gallops, murmurs, or rubs. Normal PMI, no JVD. No pulse deficits. Respiratory: Lungs have equal breath sounds bilaterally, clear to auscultation and percussion. No rales, rhonchi or wheezes noted. No increased work of breathing, no retractions or nasal flaring. Abdomen/GI: Soft, non-tender, with normal bowel sounds. No distension or tympany. No guarding or rebound. No evidence of tenderness throughout. Skin: Warm, dry with normal turgor. Normal color with no rashes, no lesions, and no evidence of cellulitis. MS/ Extremity: Pulses equal, no cyanosis. Neurovascular intact. Full, normal range of motion. Neuro: Awake and alert, GCS 15, oriented to person, place, time, and situation. Cranial nerves II-XII grossly intact. Motor strength 5/5 in all extremities. Sensory grossly intact. Cerebellar exam normal. Normal gait. 13:28 ECG was reviewed by the Attending Physician. Vital Signs: 10:34 BP 118 / 83; Pulse 78; Resp 17 S; Temp 98.1(O); Pulse Ox 95% on R/A; Weight 104.33 kg kc6 (R); Height 6 ft. 1 in. (R); 12:20 BP 146 / 94; Pulse 70; Resp 15 S; Pulse Ox 100% on R/A; kc6 10:34 Body Mass Index 30.35 (104.33 kg, 185.42 cm) kc6 MDM: 10:33 Medical Screening Exam initiated rt 13:28 Data reviewed: vital signs, nurses notes, lab test result(s), EKG. Care significantly rt affected by the following chronic conditions: Hypothyroidism. Counseling: I had a detailed discussion with the patient and/or guardian regarding the historical points, exam findings, and any diagnostic results supporting the discharge/admit diagnosis, lab results, the need for outpatient follow up, to return to the emergency department if symptoms worsen or persist or if there are any questions or concerns that arise at home. Response to treatment: the patient's symptoms have mildly improved after treatment. 01/16 10:46 Order name: Basic Metabolic Panel; Complete Time: 12:03 rt 01/16 10:46 Order name: CBC with Diff; Complete Time: 12:03 rt 01/16 10:46 Order name: LFT's; Complete Time: 12:03 rt 01/16 10:46 Order name: Troponin HS; Complete Time: 12:03 rt 01/16 10:46 Order name: TSH; Complete Time: 12:03 rt 01/16 10:46 Order name: T4 Free; Complete Time: 12:03 rt 01/16 10:46 Order name: EKG; Complete Time: 10:47 rt 01/16 10:46 Order name: Cardiac monitoring; Complete Time: 11: rt 01/16 10:46 Order name: EKG - Nurse/Tech; Complete Time: 11: rt 01/16 10:46 Order name: IV Saline Lock; Complete Time: 11: rt 01/16 10:46 Order name: Labs collected and sent; Complete Time: 11: rt 01/16 10:46 Order name: O2 Per Protocol; Complete Time: 10:54 rt 01/16 10:46 Order name: O2 Sat Monitoring; Complete Time: 10:54 rt EC:28 Rate is 51 beats/min. Rhythm is regular, Sinus bradycardia with No ectopy. QRS [place] is rt Normal. ID interval is normal. QRS interval is normal. QT interval is normal. No Q waves. T waves are Normal. No ST changes noted. Interpreted by me. Administered Medications: No medications were administered Disposition Summary: 01/17/24 12:07 Discharge Ordered Notes: Location: Home rt Problem: chronic rt Symptoms: are unchanged rt Condition: Stable rt Diagnosis - Hypothyroidism, unspecified rt Followup: rt - With: Private Physician - When: 2 - 3 days - Reason: Discharge Instructions: - Discharge Summary Sheet rt - Hypothyroidism rt Forms: - Medication Reconciliation Form rt - Antibiotic Education rt - Prescription Opioid Use rt - Patient Portal Instructions rt - Leadership Thank You Letter rt Prescriptions: - Levothyroxine 150 mcg Oral tablet - take 2 tablet ORAL route once daily take 30 minutes before breakfast; 60 rt tablet; Refills: 0, Product Selection Permitted Signatures: Dispatcher [employer] EDMS Fadumo Aelxander, RN RN kc6 Van Lynne MD MD rt Corrections: (The following items were deleted from the chart) 10:47 10:47 BASIC METABOLIC PANEL+C.LAB.BRZ ordered. EDMS EDMS 10:47 10:47 CBC+H.LAB.BRZ ordered. EDMS EDMS 10:47 10:47 HEPATIC FUNCTION+C.LAB.BRZ ordered. EDMS EDMS 10:47 10:47 Troponin High Sensitivity+C.LAB.BRZ ordered. EDMS EDMS 10:47 10:47 THYROID STIMULAT HORMONE+C.LAB.BRZ ordered. EDMS EDMS 10:47 10:47 T4 FREE+C.LAB.BRZ ordered. EDMS EDMS
[2024-01-17 12:39] VITALS: TEMP 98.1
[2024-01-17 12:49] VITALS: BP 146/94; O2SAT 100
--- NOTE | 2024-01-18 12:41 | EKG ---
Test Date: 2024-01-17 Test Time: 11:00:15 Personnel Scheduler: SARA MEASUREMENT RESULTS: Intervals: Rate: 51 [place]: 190 QRSD: 80 QT: 428 QTc: 394 [place]: P: 61 [place]: 190 QRS: 13 T: 57 INTERPRETIVE STATEMENTS: Sinus bradycardia Otherwise normal ECG Compared to ECG 10/27/2023 23:04:42 Sinus rhythm no longer present Myocardial infarct finding no longer present Electronically Signed On 01-18-24 12:39:03 AIR POLLUTION INSPECTOR by Tristian Burton
== END 2024-01-17 12:21 | disposition home or self-care (01) ==
LOC: ER 10:12
DX: E03.9 Hypothyroidism, unspecified (principal); Z76.0 Encounter for issue of repeat prescription
CPT/HCPCS: 36415; 80048; 80076; 84439; 84443; 84484; 85025; 93005; 99284

== ENCOUNTER 2024-04-04 11:44 | Emergency (ER) | payer OTHER ==
[2024-04-04 12:35] LABS: Absolute Basophils 0.1 K/uL (0-0.5); Absolute Eosinophils 0.2 K/uL (0-0.5); Absolute Lymphocytes (CBC) 1.6 K/uL (0.7-4.9); Absolute Monocytes 0.6 K/uL (0.1-1.3); Absolute Neutrophil 4.8 K/uL (1.8-8.0); Basophils % 1.1 % (0-1.3); Eosinophils % 2.8 % (0-4.4); Hematocrit 39.6 % (39.6-49.0); Lymphocytes % 21.7 % (15.3-44.8); MCH 32.7 pg (27.0-35.0); MCHC 35.3 g/dL (32.0-36.0); MCV 92.8 fL (80-100); MPV 8.5 fL (7.6-11.3); Monocytes % 8.2 % (3.3-12.3); Neutrophils % 66.2 % (41.7-73.7); Platelets 265 thou/uL (152-406); RBC Red Blood Cell Count 4.27 M/uL (4.33-5.43); Red Cell Distribution Width 14.3 % (12.1-15.2)
[2024-04-04 12:44] LABS: PT Prothrombin Time 10.1 SECONDS (9.4-12.5); PTT, Activated Partial Thromb 31.3 SECONDS (24.3-36.9); Protime INR 0.96
[2024-04-04 13:21] LABS: ALT/SGPT 71 U/L (16-61); AST/SGOT 90 U/L (15-37); Albumin 3.9 g/dL (3.4-5.0); Albumin/Globulin Ratio 1.1 (1.1-1.8); Alkaline Phosphatase 79 U/L (45-117); Anion Gap 7.4 mEq/L (5.0-15.0); BUN Blood Urea Nitrogen 23 mg/dL (7-18); Bicarbonate 29 mEq/L (21-32); Bilirubin Total 0.4 mg/dL (0.2-1.0); Globulin 3.7 g/dL (2.3-3.5); Glomerular Filtration Rate 47 ml/min (=/>90); Glucose Level 117 mg/dL (74-106); Magnesium 2.4 mg/dL (1.6-2.4); Potassium 4.4 mEq/L (3.5-5.1); Protein, Total 7.6 g/dL (6.4-8.2); Sodium Level 135 mEq/L (136-145); Troponin High Sensitivity 19.3 pg/mL (<58.9)
[2024-04-04 13:23] LABS: Bilirubin Direct < 0.2 mg/dL (0-0.2); Bilirubin Indirect, Calculated 0.2 mg/dL (0.2-0.8)
[2024-04-04] MEDS ORDERED: NA CHLORIDE 0.9% 1,000 ML ONE (14:20)
--- NOTE | 2024-04-04 14:30 | RAD REPORT ---
EXAMINATION: CT HEAD WITHOUT CONTRAST CLINICAL INDICATION: Male, 53 years old.DIZZINESS TECHNIQUE: Axial CT images from the skull base to the vertex without intravenous contrast. Coronal an d sagittal reformatted images were created from the data set. One or more of the following dose reduction techniques were used: Automated exposure control, adjustment of the mA and/or kV according to patient size, and/or iterative reconstruction. Unless otherwise specified, incidental findings do not require dedicated imaging follow-up. [id number]. COMPARISON: 04/04/2024 FINDINGS: INTRACRANIAL: No acute intracranial hemorrhage. No hydrocephalus. No mass effect or midline shift. Re mote left frontal lobe cortical infarct.Mild cerebral atrophy. VASCULATURE: The basilar artery on a single image appears hyperdense but this is similar to prior and probably of little significance. SCALP/SKULL: No significant soft tissue or osseous abnormalities. Left frontal craniotomy. SINUSES: The visualized paranasal sinuses and mastoid air cells are predominantly clear. IMPRESSION: No acute intracranial abnormality. Remote left frontal lobe cortical infarct.
--- NOTE | 2024-04-04 14:36 | RAD REPORT ---
EXAMINATION: CT ABDOMEN AND PELVIS WITHOUT CONTRAST CLINICAL INDICATION: Male, 53 years old.ABD PAIN TECHNIQUE: CT abdomen and pelvis was performed, without IV contrast, as per department protocol. Axia l, sagittal and coronal reconstructions were obtained. One or more of the following dose reduction techniques were used: Automated exposure control, adjustment of the mA and/or kV according to the pat ient size, and/or iterative reconstruction. Unless otherwise specified, incidental findings do not require dedicated imaging follow-up. [id number]. IV CONTRAST: Not administered. COMPARISON: 10/28/2023 FINDINGS: The lack of intravenous contrast limits the sensitivity of this exam for evaluation of solid visceral organs, vascular structures, and retroperitoneum. LOWER CHEST: No acute process identified.No significant pericardial effusion. Mild circumferential th ickening of the distal esophagus which could reflect esophagitis. UPPER GI: No significant abnormality. LIVER: Hepatic steatosis. Benign appearing and/or stable lesions are identified. No suspicious mass. GALLBLADDER/BILE DUCTS: No biliary ductal dilatation.? PANCREAS: No mass, ductal dilation, or jenane-pancreatic fluid. SPLEEN: Unremarkable. ADRENALS: No adrenal masses. KIDNEYS AND URETERS: No hydronephrosis.Within the limitations of a noncontrast CT, no suspicious jermaine l lesions. ABDOMINAL AORTA AND OTHER VESSELS: Moderate atherosclerotic changes without aortic aneurysm. PERITONEUM: Mesenteric edema at the ileocolic mesentery. LYMPH NODES: No pathologic lymphadenopathy. ABDOMINAL WALL: Small fat-containing subumbilical hernia. Large right inguinal hernia which extends i nto the scrotum and contains portions of bowel. There is similar associated mesenteric edema.. Small fat-containing left inguinal hernia. SMALL BOWEL/COLON: Large right inguinal hernia containing small bowel. No bowel obstruction. URINARY BLADDER: Underdistended but grossly unremarkable. REPRODUCTIVE ORGANS: Seminal vesicles unremarkable. MUSCULOSKELETAL: Multilevel degenerative changes in the spine. No acute fracture. ADDITIONAL FINDINGS: None. IMPRESSION: 1. No new acute findings within the abdomen or pelvis. 2. Large right inguinal hernia containing small bowel that extends into the scrotum. Mesenteric edema associated with this portion of small bowel is similar to 10/28/2023. If the patient's symptoms are referrable to this hernia, then surgical consultation is advised.
[2024-04-04 14:39] LABS: Specific Gravity 1.018 (1.005-1.030); Urine Bilirubin NEGATIVE (Negative); Urine Blood Negative (Negative); Urine Clarity Clear (Clear); Urine Color Light-Yellow (Yellow); Urine Glucose NEGATIVE (Negative); Urine Ketones NEGATIVE (Negative); Urine Microscopic Reflex YN NO UMIC; Urine Nitrite NEGATIVE (Negative); Urine Protein NEGATIVE (Negative); Urine Urobilinogen Normal (Normal)
[2024-04-04] MEDS ORDERED: LEVOTHYROXINE SOD 0.1 MG TAB PO ONE (15:00)
--- NOTE | 2024-04-04 15:27 | ER ---
Nurse's Notes [facility] Name: Genaro Antonio Jr Age: 53 yrs Sex: Male : 1970 Arrival Date: 04/04/2024 Time: 11:44 Bed 12 Private MD: Diagnosis: Hypothyroidism, unspecified Presentation: 04/04 11:55 Chief complaint: Patient states: VISION CHANGES, BODY ACHES, SORE THROAT. X 2 WEEKS db STATES HAS BEEN OUT OF LEVOTHYROXINE MEDICATIONS. ABD HERNIA. STATES YESTERDAY FELT LIKE HAD DEHYDRATION AND TOOK ELECTROLYTES. Coronavirus screen: Client denies travel out of the [place] in the last 14 days. At this time, the client does not indicate any symptoms associated with coronavirus-19. Ebola Screen: Patient negative for fever greater than or equal to 101.5 degrees Fahrenheit, and additional compatible Ebola Virus Disease symptoms Patient denies exposure to infectious person. Patient denies travel to an Ebola-affected area in the 21 days before illness onset. No symptoms or risks identified at this time. Initial Sepsis Screen: Does the patient meet any 2 criteria? No. Patient's initial sepsis screen is negative. Does the patient have a suspected source of infection? No. Patient's initial sepsis screen is negative. Risk Assessment: Do you want to hurt yourself or someone else? Patient reports no desire to harm self or others. Onset of symptoms was April 04, 2024. 11:55 Method Of Arrival: Ambulatory db 11:55 Acuity: MARTHA 3 db Triage Assessment: 11:55 General: Appears in no apparent distress. comfortable, Behavior is calm, cooperative. db Pain: Complains of pain in face. Neuro: Level of Consciousness is awake, alert, obeys commands, Oriented to person, place, time, situation. Historical: - Allergies: 11:55 No Known Allergies; db - PMHx: 11:55 Aneurysm; Hypothyroidism; inguanal hernia; kidney disease; THYROID CANCER; db - PSHx: 11:55 Cranial surgery; thyroid ectomy; db - Immunization history:: Adult Immunizations unknown. - Infectious Disease History:: Denies. - Social history:: Smoking status: Patient reports the use of cigarette tobacco products, smokes one-half pack cigarettes per day. Screenin:32 [facility] ED Fall Risk Assessment (Adult) History of falling in the last 3 months, ko1 including since admission No falls in past 3 months (0 pts) Confusion or Disorientation No (0 pts) Intoxicated or Sedated No (0 pts) Impaired Gait No (0 pts) Mobility Assist Device Used No (0 pt) Altered Elimination No (0 pt) Score/Fall Risk Level 0 - 2 = Low Risk Oriented to surroundings, Maintained a safe environment, Educated pt \T\ family on fall prevention, incl call for assistance when getting out of bed, Assessed \T\ reinforced patient's understanding of fall precautions, Hourly rounding (assess needs \T\ fall precautionary measures) done. Abuse screen: Denies threats or abuse. Denies injuries from another. Nutritional screening: No deficits noted. Tuberculosis screening: No symptoms or risk factors identified. Assessment: 12:34 General: Appears uncomfortable, Behavior is calm, cooperative, appropriate for age. ko1 Pain: Complains of pain in legs, abdomen. Neuro: No deficits noted. Cardiovascular: No deficits noted. Respiratory: Reports cough that is. GI: No deficits noted. : No deficits noted. 12:35 EENT: Reports blurred vision in both eyes. Derm: No deficits noted. No signs and/or ko1 symptoms reported regarding the dermatologic system. Musculoskeletal: Reports generalized body aches. Vital Signs: 11:55 BP 119 / 109; Pulse 73; Resp 18; Temp 97.7; Pulse Ox 96% ; Weight 106.59 kg; Height 6 db ft. 1 in. ; 14:30 BP 131 / 98; Pulse 64; Resp 15; Pulse Ox 98% ; ko1 11:55 Body Mass Index 31.00 (106.59 kg, 185.42 cm) db ED Course: 11:45 Patient arrived in ED. al6 11:47 Maria Del Carmen Donovan FNP-C is [facility]. kb 11:47 Bello Paula MD is Attending Physician. kb 11:55 Arm band placed on Patient placed in an exam room, in a hallway bed. db 11:57 Triage completed. db 12:23 Lalita Flores, RN is Primary Nurse. ko1 12:27 Initial lab(s) drawn, by me, sent to lab. Inserted saline lock: 20 gauge in left hb antecubital area, using aseptic technique. Blood collected. Flushed with 10 mL NS. 12:28 Basic Metabolic Panel Sent. hb 12:28 CBC with Diff Sent. hb 12:28 Hepatic Function Sent. hb 12:28 Magnesium Sent. hb 12:28 Protime (+inr) Sent. hb 12:32 Patient has correct armband on for positive identification. Bed in low position. Call ko1 light in reach. Provided Education on: labs. Client placed on continuous cardiac and pulse oximetry monitoring. NIBP monitoring applied. vehicle monitor technician on. Door closed. Noise minimized. Lights dimmed. Warm blanket given. Pillow given. 12:32 EKG done, by ED staff, reviewed by Maria Del Carmen VOGEL. ko1 13:31 No provider procedures requiring assistance completed. ko1 14:19 CT Head Brain wo Cont In Process Unspecified. EDMS 14:19 Abdomen In Process Unspecified. EDMS 14:30 Urinalysis w/ reflexes Sent. ko1 15:27 IV discontinued, intact, bleeding controlled, No redness/swelling at site. Pressure ko1 dressing applied. Administered Medications: 14:30 Drug: levothyroxine 300 mcg PO once Route: PO; ko1 15:01 Follow up: Response: No adverse reaction ko1 14:30 Drug: NS 0.9% IV 1000 ml IV at 1000 ml once; to be given as a bolus over 60 minutes ko1 Route: IV; Rate: 1000 ml; Site: left antecubital; 15:35 Follow up: Response: No adverse reaction; IV Status: Completed infusion; IV Intake: ko1 650ml Medication: 12:35 VIS not applicable for this client. ko1 Intake: 15:35 IV: 650ml; Total: 650ml. ko1 Outcome: 15:26 Discharge ordered by MD. cardenas 15:34 Discharged to home ambulatory, with family, ko1 15:34 Condition: stable 15:34 Discharge instructions given to patient, family, Instructed on discharge instructions, follow up and referral plans. medication usage, Demonstrated understanding of instructions, follow-up care, medications, Prescriptions given X 1, 15:35 Patient left the ED. ko1 Signatures: Dispatcher [employer] EDMaria Del Carmen Calix FNP-C FNP-Naomi Wiley RN RN Lalita Ventura RN RN ko1 Alison Almonte RN RN db Landin, Alissa al6 Corrections: (The following items were deleted from the chart) 11:59 11:55 BP 150 / 126; Pulse 73bpm; Resp 18bpm; Pulse Ox 96%; Temp 97.7F; 106.59 kg; db Height 6 ft. 1 in.; BMI: 31.0; db 12:05 11:55 Chief complaint: Patient states: VISION CHANGES, BODY ACHES, SORE THROAT. X 2 db WEEKS STATES HAS BEEN OUT OF LEVOTHYROXINE MEDICATIONS db
--- NOTE | 2024-04-04 15:27 | EDPHYS ---
Physician Documentation [facility] Name: Genaro Antonio Jr Age: 53 yrs Sex: Male : 1970 Arrival Date: 04/04/2024 Time: 11:44 Bed 12 Private MD: ED Physician Bello Paula HPI: 04/04 14:12 This 53 yrs old Male presents to ER via Ambulatory with complaints of Flu Symptoms. kb 14:13 Patient is a 53-year-old male who presents for body aches, sore throat, equilibrium kb being off, visual changes, neck and eye swelling, intermittent abdominal pain that started 1 week ago. States this is exactly how he feels whenever his thyroid hormone is off. States has been out of levothyroxine for 3 weeks and he thinks that is the reason for his symptoms. Patient normally takes 300 mcg of levothyroxine daily. Patient states he also got overheated yesterday so he may be dehydrated.. Historical: - Allergies: 11:55 No Known Allergies; db - PMHx: 11:55 Aneurysm; Hypothyroidism; inguanal hernia; kidney disease; THYROID CANCER; db - PSHx: 11:55 Cranial surgery; thyroid ectomy; db - Immunization history:: Adult Immunizations unknown. - Infectious Disease History:: Denies. - Social history:: Smoking status: Patient reports the use of cigarette tobacco products, smokes one-half pack cigarettes per day. ROS: 14:12 Constitutional: As per HPI kb Exam: 12:38 Constitutional: This is a well developed, well nourished patient who is awake, alert, kb and in no acute distress. Head/Face: Normocephalic, atraumatic. ENT: Moist Mucous membranes Cardiovascular: Regular rate Respiratory: Respirations even and unlabored. No increased work of breathing. Talking in full sentences Abdomen/GI: Soft, non-tender. No distention Skin: Warm, dry with normal turgor. Normal color. MS/ Extremity: Pulses equal, no cyanosis. Neurovascular intact. Full, normal range of motion. Neuro: Awake and alert, GCS 15, oriented to person, place, time, and situation. 12:38 ECG was reviewed by the Attending Physician. Vital Signs: 11:55 BP 119 / 109; Pulse 73; Resp 18; Temp 97.7; Pulse Ox 96% ; Weight 106.59 kg; Height 6 db ft. 1 in. ; 14:30 BP 131 / 98; Pulse 64; Resp 15; Pulse Ox 98% ; ko1 11:55 Body Mass Index 31.00 (106.59 kg, 185.42 cm) db MDM: 11:47 Medical Screening Exam initiated kb 14:14 Differential diagnosis: Hypothyroidism, hernia, abnormal electrolytes. Data reviewed: kb vital signs, nurses notes. Historians other than the Patient:. 15:26 Counseling: I had a detailed discussion with the patient and/or guardian regarding the kb historical points, exam findings, and any diagnostic results supporting the discharge/admit diagnosis, lab results, radiology results, the need for outpatient follow up, a family practitioner, to return to the emergency department if symptoms worsen or persist or if there are any questions or concerns that arise at home. 04/04 12:03 Order name: Basic Metabolic Panel; Complete Time: 13:36 db 04/04 12:03 Order name: CBC with Diff; Complete Time: 12:43 db 04/04 12:03 Order name: Hepatic Function; Complete Time: 13:36 db 04/04 12:03 Order name: Magnesium; Complete Time: 13:36 db 04/04 12:03 Order name: Protime (+inr); Complete Time: 12:50 db 04/04 12:03 Order name: Ptt, Activated; Complete Time: 12:50 db 04/04 12:03 Order name: Troponin High Sensitivity; Complete Time: 13:36 db 04/04 12:03 Order name: Urinalysis w/ reflexes; Complete Time: 14:41 db 04/04 12:03 Order name: TSH; Complete Time: 13:36 db 04/04 13:25 Order name: T4 Free; Complete Time: 13:36 EDMS 04/04 12:03 Order name: CT Head Brain wo Cont; Complete Time: 14:30 db 04/04 13:44 Order name: Abdomen ; Complete Time: 14:38 EDMS 04/04 12:03 Order name: Cardiac monitoring; Complete Time: 12:23 db 04/04 12:03 Order name: EKG - Nurse/Tech; Complete Time: 12:32 db 04/04 12:03 Order name: IV Saline Lock; Complete Time: 12:28 db 04/04 12:03 Order name: Labs collected and sent; Complete Time: 12:28 db 04/04 12:03 Order name: NPO; Complete Time: 12: db 04/04 12:03 Order name: O2 Per Protocol; Complete Time: : db 04/04 12:03 Order name: O2 Sat Monitoring; Complete Time: : db 04/04 14:15 Order name: Vital Signs; Complete Time: 14:30 kb EC:38 Rate is 62 beats/min. Rhythm is regular. QRS [place] is Normal. CT interval is normal at kb 192 msec. QRS interval is normal at 92 msec. QT interval is normal at 389 msec. Administered Medications: 14:30 Drug: levothyroxine 300 mcg PO once Route: PO; ko1 15:01 Follow up: Response: No adverse reaction ko1 14:30 Drug: NS 0.9% IV 1000 ml IV at 1000 ml once; to be given as a bolus over 60 minutes ko1 Route: IV; Rate: 1000 ml; Site: left antecubital; 15:35 Follow up: Response: No adverse reaction; IV Status: Completed infusion; IV Intake: ko1 650ml Disposition: 19:03 Co-signature as Attending Physician, Bello Paula MD I reviewed the patient's care rn provided by the Advanced Practice Provider and agree with the diagnosis and treatment plan. Disposition Summary: 04/04/24 15:26 Discharge Ordered Notes: Location: Home kb Condition: Stable kb Diagnosis - Hypothyroidism, unspecified kb Followup: kb - With: Emergency Department - When: As needed - Reason: Worsening of condition Followup: kb - With: Private Physician - When: 2 - 3 days - Reason: Recheck today's complaints, Continuance of care, Re-evaluation by your physician Discharge Instructions: - Discharge Summary Sheet kb - Hypothyroidism kb Forms: - Medication Reconciliation Form kb - Antibiotic Education kb - Prescription Opioid Use kb - Patient Portal Instructions kb - Leadership Thank You Letter kb Prescriptions: - levothyroxine 300 mcg Oral tablet - take 1 tablet ORAL route daily; 60 tablet; Refills: 0, Product Selection kb Permitted Signatures: Dispatcher [employer] Maria Del Carmen Fernandes, JAYLIN-C JAYLIN-Bello Lindo MD MD rn Oliver, Kathy, RN RN ko1 Alison Almonte RN RN db Corrections: (The following items were deleted from the chart) 12:04 12:04 BASIC METABOLIC PANEL+C.LAB.BRZ ordered. EDMS EDMS 12:04 12:04 CBC+H.LAB.BRZ ordered. EDMS EDMS 12:04 12:04 HEPATIC FUNCTION+C.LAB.BRZ ordered. EDMS EDMS 12:04 12:04 MAGNESIUM+C.LAB.BRZ ordered. EDMS EDMS 12:04 12:04 PROTIME (+INR)+COAG.LAB.BRZ ordered. EDMS EDMS 12:04 12:04 PTT, ACTIVATED+COAG.LAB.BRZ ordered. EDMS EDMS 12:04 12:04 Troponin High Sensitivity+C.LAB.BRZ ordered. EDMS EDMS 12:04 12:04 Urinalysis+U.LAB.BRZ ordered. EDMS EDMS 12:04 12:04 THYROID STIMULAT HORMONE+C.LAB.BRZ ordered. EDMS EDMS 12:04 12:04 Head Brain Wo Cont+CT.RAD.BRZ ordered. EDMS EDMS 12:04 12:04 Abdomen Pelvis W Con+CT.RAD.BRZ ordered. EDMS EDMS 14:14 14:13 Patient is a 53-year-old male who presents for body aches, sore throat, kb equilibrium being off, visual changes, neck and eye swelling, intermittent abdominal pain that started 1 week ago. States this is exactly how he feels whenever his thyroid hormone is off. States has been out of levothyroxine for 3 weeks and he thinks that is the reason for his symptoms. Patient normally takes 300 mcg of levothyroxine daily.. kb
[2024-04-04 18:20] VITALS: TEMP 97.7
[2024-04-04 18:25] VITALS: BP 131/98; O2SAT 98
--- NOTE | 2024-04-07 12:40 | EKG ---
Test Date: 2024-04-04 Test Time: 12:29:26 Field Reporter: JOSEPH MEASUREMENT RESULTS: Intervals: Rate: 62 [place]: 192 QRSD: 92 QT: 384 QTc: 389 [place]: P: 41 [place]: 192 QRS: -18 T: 59 INTERPRETIVE STATEMENTS: Normal sinus rhythm Normal ECG Compared to ECG 01/17/2024 11:00:15 Sinus bradycardia no longer present Electronically Signed On 04-07-24 12:33:46 PRODUCTION CORRUGATOR by Tristian Burton
== END 2024-04-04 15:35 | disposition home or self-care (01) ==
LOC: ER 11:44
DX: E03.9 Hypothyroidism, unspecified (principal); Z85.850 Personal history of malignant neoplasm of thyroid; F17.210 Nicotine dependence, cigarettes, uncomplicated
CPT/HCPCS: 85025; 80048; 36415; 83735; 85610; 80076; 85730; 84443; 81003; 84484; 84439; 70450; 74176; 96360; 99285; J7030; 93005